=== PATIENT | female | born 1970 ===

== ENCOUNTER 2025-05-06 15:20 | Outpatient (AMB) | payer MEDICARE, MEDICAID, SELFPAY ==
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
[2025-05-06 15:29] VITALS: BP 176/107; PULSE 81; O2SAT 98; BMI 25.7
--- OUTSIDE RECORDS SUMMARY | 2025-05-06 20:24 | XMS_ITS | Encounter Summary ---
Author Organization [employer] Address [address] [place] [address] Care Team Providers Care Body Trimmer Name Role Phone Candelaria Reddy Unavailable aNrda Colon PA-C Primary Care Provider [phone] Encounter Details Date Type Department Care Team ([facility] st Contact Info) Description 01/28/2025 Telephone [facility] [address] [place] [address] Narda Colon PA-C [address] [place] [address] Social History Tobacco Use Types Packs/Day Years [...] PM EST documented as of this encounter Miscellaneous Notes * Telephone Encounter - Constantino Rahman - 01/31/2025 2:24 PM EDT Reprocessed. * Telephone Encounter - Mony Herbert - 01/28/2025 8:42 AM EDT Patient needs to be referred elsewhere because [facility] pain management is @ capacity. Please advise Call back # [phone] documented in this encounter Plan of Treatment Upcoming Encounters Date Type Department Care Team (Late st Contact Info) Description 06/03/2025 1:00 PM EST Office Visit [facility] [address] [place] [address] Fermin Peters MD [address] [place] [address] 06/05/2025 12:30 PM EST Office Visit [facility] [address] [place] [phone] John Jarquin LLD [address] [place] [address] documented as of this encounter Visit Diagnoses Not on filedocumented in this encounter Additional Health Concerns Assessment Noted Time PHQ-9 Depression Total Score: 7 09/21/19 25 2:33 PM EST documented as of this encounter Care Teams Body Trimmer Relationship Specialty Start Date End Date Narda Colon PA-C [address] [place] [address] PCP - General Family Medicine 02/06/24 Candelaria Reddy [address] [place] [address] [facility] 03/01/23 documented as of this encounter
--- OUTSIDE RECORDS SUMMARY | 2025-05-06 20:24 | XMS_ITS | Encounter Summary ---
Author Organization [employer] Address [address] [place] [address] Care Team Providers Care Client Manager Large Law Name Role Phone Candelaria Reddy Unavailable Narda Colon PA-C Primary Care Provider [phone] Encounter Details Date Type Department Care Team (Late st Contact Info) Description 08/16/2024 Telephone [facility] [address] [place] [address] Narda Colon PA-C [address] [place] [address] Social History Tobacco Use Types Packs/Day Years Used Date Smoking Tobacco: Every Day Cigarettes 0.5 35 Passive Smoke Exposure: Current Smokeless Tobacco: Never Comments:07/04/23 Alcohol Use Standard Drinks/Week Comments Yes 0 (1 standard drink = 0.6 oz pur e alcohol) occ Housing Stability Answer Date Recorded What is [...] things needed for daily living? No 06/19/2024 Utilities Answer Date Recorded In the past 12 months, has t he electric, gas, oil or water company threatened to shut off services in your home? No 06/19/2024 Internet Access Answer Date Recorded Internet Access [...] encounter Miscellaneous Notes * Telephone Encounter - Mayte Haynes - 08/19/2024 8:50 AM EST Imm's faxed and mailed as requested by pt. * Telephone Encounter - Yeny Thompson - 08/16/2024 4:18 PM EST Patient is looking to have recent labs faxed over to there endo's office dr damon . And possibly mailed to them as well documented in this encounter Plan of Treatment Upcoming Encounters Date Type Department Care Team (Late st Contact Info) Description 06/03/2025 1:00 PM EST Office Visit [facility] [address] [place] [address] Fermin Peters MD [address] [place] [address] 06/05/2025 12:30 PM EST Office Visit [facility] [address] [facility] [address] [place] [phone] John Jarquin LLD [address] [place] [address] documented as of this encounter Visit Diagnoses Not on filedocumented in this encounter Care Teams Client Manager Large Law Relationship Specialty Start Date End Date Narda Colon PA-C NPI: [id number] [place] [address] PCP - General Family Medicine 02/06/24 Candelaria Reddy [address] [place] [address] [facility] 03/01/23 documented as of this encounter
--- OUTSIDE RECORDS SUMMARY | 2025-05-06 20:24 | XMS_ITS | Encounter Summary ---
Author Organization [employer] Address [address] [place] [address] Care Team Providers Care Tug Captain Name Role Phone Sarai Bruno POOL CLEANER Unavailable [phone] Arturo Lopez POOL CLEANER Primary Care Provider Unavaila roman StringeriniCandelaria Unavailable Veronica Marie Unavailable [phone] Ishmael Savage DDS Unavailable [phone] Emma Gutierrez Unavailable Kings HenleyC Primary Care Provider [phone] Narda Colon PA-C Primary Care Provider [phone] Encounter Details Date Type Department Care Team (Late st Contact Info) Description 08/10/[address] [address] Tayla Mitchell Social History Tobacco Use Types Packs/Day Years Used Date Smoking Tobacco: Every Day Cigarettes 0.5 35 Passive Smoke Exposure: Current Smokeless Tobacco: Never Comments:07/04/23 Housing Stability Answer Date Recorded What is your housing situation today? I do not have housing (Staying with others, in a hotel, in a long term, living outside on the street, on a beach, in a car, or in a park 04/26/[address] you li ve. Do you have problems with any of the following? None of the above 04/26/2023 Food Insecurity Answer Date Recorded Within the past 12 months, y ou worried that your food would run out before you got money to buy more: Never True 05/16/2023 Within the past 12 months,th e food you bought just didn't last and you didn't have enough money to get more: Never True Transportation Answer Date Recorded In the past 12 months, has l ack of transportation kept you from medical appts, meetings, work or from getting things needed for daily living? No 05/16/2023 Utilities Answer Date Recorded In the past 12 months, has t he electric, gas, oil or water company threatened to shut off services in your home? No 05/16/2023 Comments Unknown Sex and Gender Information Value Date Recorded Sex Assigned at Female 11/07/2022 1:48 PM EDT Legal Sex Female 8:39 PM EST Gender Identity Female 05/27/2022 8:39 PM EST Sexual Orientation Straight 05/27/2022 8: 39 PM EST documented as of this encounter Plan of Treatment Upcoming Encounters Date Type Department Care Team (Late st Contact Info) Description 06/03/2025 1:00 PM EST Office Visit [address] [address] Fermin Peters MD 8 [place] [address] 06/05/2025 12:30 PM EST Office Visit [facility] [address] [place] [phone] John Jarquin LLD [address] [place] [address] documented as of this encounter Visit Diagnoses Not on filedocumented in this encounter Care Teams Tug Captain Relationship Specialty Start Date End Date Arturo Lopez FNP [address] [place] [address] PCP - General Family Medicine 02/20/23 10/12/23 Kings Henley PA-C [address] [place] [address] PCP - General Family Medicine 10/13/23 02/05/24 Narda Colon PA-C [address] [place] [address] PCP - General Family Medicine 02/06/24 Sarai Bruno FNP [address] [place] [address] Family Medicine 05/13/22 10/12/23 Candelaria Reddy [address] [place] [address] [facility] 03/01/23 [place], [place] [address] [place] [address] Community Health Worker 04/21/23 4 Ishmael Savage DDS [address] [place] [address] Dentist 06/01/23 10/12/23 Emma Gutierrez [address] [place] [address] Dental Rn Flight 06/01/23 10/12/23 documented as of this encounter
--- OUTSIDE RECORDS SUMMARY | 2025-05-06 20:24 | XMS_ITS | Encounter Summary ---
Author Organization [employer] Address [address] [place] [address] Care Team Providers Care High Pressure Firer Name Role Phone Candelaria Reddy Unavailable Narda Colon PA-C Primary Care Provider [phone] Encounter Details Date Type Department Care Team ([facility] st Contact Info) Description 01/23/[address] [facility] [address] [place] [address] Narda Colon PA-C 8 [place] [address] Social History Tobacco Use Types [...] encounter Miscellaneous Notes * Telephone Encounter - Jean Alvarado - 02/03/2025 9:53 AM EDT Duplicate task * Telephone Encounter - Mony Herbert - 01/23/2025 2:30 PM EDT Please call to answer questions on the referral Call back to alexa # [phone] documented in this encounter Plan of Treatment Upcoming Encounters Date Type Department Care Team (Late st Contact Info) Description 06/03/2025 1:00 PM EST Office Visit [facility] 8 [place] [address] Fermin Peters MD 8 [place] [address] 06/05/2025 12:30 PM EST Office Visit [facility] [address] [facility] [address] [place] [phone] John Jarquin, LLD 119 [place] [address] documented as of this encounter Visit Diagnoses Not on filedocumented in this encounter Additional Health Concerns Assessment Noted Time PHQ-9 Depression Total Score: 7 09/21/19 25 2:33 PM EST documented as of this encounter Care Teams High Pressure Firer Relationship Specialty Start Date End Date Narda Colon PA-C [address] [place] [address] PCP - General Family Medicine 02/06/24 Candelaria Reddy 102 [place] [address] [facility] 03/01/23 documented as of this encounter
--- OUTSIDE RECORDS SUMMARY | 2025-05-06 20:24 | XMS_ITS | Encounter Summary ---
Author Organization [employer] Address [address] 7[address] [place] [address] Care Team Providers Care Lieutenant Fire Fighter Name Role Phone Candelaria Reddy Unavailable Narda Colon PA-C Primary Care Provider [phone] Encounter Details Date Type Department Care Team (Late st Contact Info) Description 12/24/2024 Orders Only [facility] [address] [place] [address] Provider, Not In System Social History Tobacco Use Types Packs/Day Years [...] Description 06/03/2025 1:00 PM EST Office Visit [facility] 8 [place] [phone] Fermin Peters MD 8 [place], [place] [phone] 06/05/2025 12:30 PM EST Office Visit [facility] [address] [place] [phone] John Jarquin LLD 119 [place] [address] documented as of this encounter Procedures Procedure Name Priority Date/Time Associated Diagnosis Comments PTH, INTACT AND CALCIUM Routine 12/23/2024 10:56 AM EDT documented in this encounter Results * PTH, Intact And Calcium (12/23/2024 10:56 AM EDT) Blood Venous blood specimen / Unknown us Not In System Provider LAB BLOOD ORDERABLES Edit ed Result - Final documented in this encounter Visit Diagnoses Not on filedocumented in this encounter Additional Health Concerns Assessment Noted Time PHQ-9 Depression Total Score: 7 09/21/19 25 2:33 PM EST documented as of this encounter Care Teams Lieutenant Fire Fighter Relationship Specialty Start Date End Date Narda Colon PA-C 102 [place] [address] PCP - General Family Medicine 02/06/24 Candelaria Reddy 102 [place] [address] [facility] 03/01/23 documented as of this encounter
--- OUTSIDE RECORDS SUMMARY | 2025-05-06 20:24 | XMS_ITS | Encounter Summary ---
Author Organization [employer] Address [address] 7[address] [place] [address] Care Team Providers Care Instructor Private Name Role Phone Candelaria Reddy Unavailable Narda Colon PA-C Primary Care Provider [phone] Encounter Details Date Type Department Care Team ([facility] st Contact Info) Description 09/25/2024 [facility] [address] [place] [address] Narda Colon PA-C 8 [place] [address] Social History Tobacco Use Types Packs/Day Years Used Date Smoking Tobacco: Every Day Cigarettes 0.5 35 Passive Smoke Exposure: Current Smokeless Tobacco: Never Comments:07/04/23 Alcohol Use Standard Drinks/Week Comments Yes 0 (1 standard drink = 0.6 oz pur e alcohol) occ Depression Answer Date Recorded Patient Health Questionnaire-9 [...] Description 06/03/2025 1:00 PM EST Office Visit [facility] 8 [place] [address] Fermin Peters MD 8 [place] [address] 06/05/2025 12:30 PM EST Office Visit [facility] [address] [address] [address] [place] [phone] John Jarquin, LLD [address] [place] [address] documented as of this encounter Procedures Procedure Name Priority Date/Time Associated Diagnosis Comments HM HIV 1/2 ANTIGEN AND ANTIBODY Routine 04/10/2019 documented in this encounter Results * HM HIV 1/2 Antigen and Antibody (04/10/2019) HIV Ag/Ab Nonreactive us Historical Provider HEALTH MAINTENANCE Final Result documented in this encounter Visit Diagnoses Not on filedocumented in this encounter Additional Health Concerns Assessment Noted Time PHQ-9 Depression Total Score: 7 09/21/19 25 2:33 PM EST documented as of this encounter Care Teams Instructor Private Relationship Specialty Start Date End Date Narda Colon PA-C 102 [place] [address] PCP - General Family Medicine 02/06/24 Candelaria Reddy 102 [place] [address] [facility] 03/01/23 documented as of this encounter
--- OUTSIDE RECORDS SUMMARY | 2025-05-06 20:25 | XMS_ITS | Encounter Summary ---
Author Organization [employer] Address [address] 7[address] [place] [address] Care Team Providers Care Osteologist Name Role Phone Candelaria Reddy Unavailable Narda Colon PA-C Primary Care Provider [phone] Encounter Details Date Type Department Care Team (Late st Contact Info) Description 05/06/2025 Telephone [facility] [address] [place] [phone] Dental, Provider, DDS Social History Tobacco Use Types Packs/Day Years [...] encounter Miscellaneous Notes * Telephone Encounter - Elena Shore - 05/06/2025 8:32 AM EDT LVM to offer PT sooner exam appointment today is available with Dr Jarquin documented in this encounter Plan of Treatment Upcoming Encounters Date Type Department Care Team (Late st Contact Info) Description 06/03/2025 1:00 PM EST Office Visit [address] [address] Fermin Peters MD 8 [place] [address] 06/05/2025 12:30 PM EST Office Visit [facility] [address] [place] [address] John Jarquin LLD 119 [place] [address] documented as of this encounter Visit Diagnoses Not on filedocumented in this encounter Additional Health Concerns Assessment Noted Time PHQ-9 Depression Total Score: 7 09/21/19 25 2:33 PM EST documented as of this encounter Care Teams Osteologist Relationship Specialty Start Date End Date Narda Colon PA-C [address] [place] [address] PCP - General Family Medicine 02/06/24 Candelaria Reddy 102 [place] [address] [facility] 03/01/23 documented as of this encounter
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
--- OUTSIDE RECORDS SUMMARY | 2025-05-06 20:25 | XMS_ITS | Continuity of Care Document ---
Author Organization [facility] [facility] Address [address] [facility] [address] [place], [place] Phone [phone] Care Team Providers Care Newspaper Managing Editor Name Role Phone Narda Colon PA-C Care Team Information Receiv er Unavailable JENY KWONG M.D. Care Team Information Rec eiver Unavailable Narda Colon PA-C Primary Care Physician Unava ilable Problems Active Problems Provider Date Closed fracture distal phalanx, toe Jeny Kwong M.D. Onset: 10/28/2024 Perimenopausal disorder Jeny Kwong M.D. Onset: 10/28/2024 Essential hypertension Jeny Kwong M.D. O nset: 05/07/2019 Malaise and fatigue Jeny Kwong M.D. Onse t: 02/03/2017 Hypothyroidism Jeny Kwong M.D. Onset: 0 11/27/2014 Social History Type Date Description Comments Sex Female Sex Unknown Allergies and adverse reactions Active Allergies Criticality Reaction Severity Comments Date Nicotine Unable to assess criticality skin rash 06/08/2021 Inactive Allergies No Known Drug Allergies 0 09/18/2014 Medications Active Medications SIG Qnty Indications Order ing Provider Date Wxafycz844lka Tablets Take 1 Tablet By Mouth Every Day 90tabs Jeny Kwong M.D. 04/23/2024 Vitamin D 5000 x1/week Unknown 00/00/0 000 Diltiazem HCL ER Coated Lwhvn058jx Caps ER 24HR (tiadylt)1 tab by mouth every day(forgot 10/27/24 dose) I10 Unknown Nixafpkwp568xe Tablets qid Unknown Kxxkyltpse581pg Tablets take 1 tablet by mouth three-4 times a day Unknown Cyclobenzaprine OND22si Tablets Sarai BrunoBASILIA Escitalopram Ihgoiac05hk Tablets Neha Foss NP Nortriptyline ASS55zc Capsules Neha Foss NP Propranolol VVA49kx Tablets Take 1/2-1 Tablet By Mouth Every Day as Needed For Panic Unknown Methylphenidate DHQ15ai Tablets Take 1 Tablet By Mouth Twice A Day(Ritalin) Neha Foss NP Acetaminophen prn Unknown History Medications Clonidine HCL0.1mg Tablets Take 1 Tablet By Mouth AT Bedtime as Directed 90tabs I10 Jeny Kwong M.D. 06/08/2021 - 07/25/2022 Yjpkqnk139dtq Tablets Take 1 Tablet By Mouth Every Day Except 1 & 1/2 Tablets On Monday 100tabs Jeny Kwong M.D. 06/08/2021 - 08/19/2024 Mrxvqtg927bns Tablets Take 1 Tablet By Mouth Every Day 30tabs Jeny Kwong M.D. 09/13/2019 - 06/08/2021 Diltiazem HCL ER Wwiqc871zg Caps ER 24HR 1 tab by mouth every day 30caps I10 Jeny Kwong M.D. 05/07/2019 - 01/16/2020 Mqlzfbr844dit Tablets 1 by mouth every day 30tabs Jeny Kwong M.D. 05/07/2019 - 09/13/2019 Rtwnrzh377ybs Tablets Take 1 Tablet By Mouth Every Day 30tabs Jeny Kwong M.D. 01/29/2019 - 05/07/2019 Levothyroxine Ptkqug836iit Tablets take 1 tablet by mouth every day 30tabs Jeny Kwong M.D. 12/26/2017 - 01/29/2019 Liothyronine Wlhxiq4ysh Tablets take 1/2 tablet every morning 15tabs Jeny Kwong M.D. 03/23/2017 - 12/26/2017 Levothyroxine Fwnsda583nqr Tablets Take 1 Tablet By Mouth Every Day 30tabs Jeny Kwong M.D. 03/23/2017 - 12/26/2017 [place] Gymboeu42oq Tablets 1 by mouth every day 30tabs E03.9 Jeny Kwong M.D. 02/03/2017 - 03/23/2017 Zdzzekjsel91ze Tablets Take 1 Tablet By Mouth Every Day Unknown - 05/07/[address] (One) A Day Unknown - 05/07/2019 Levothyroxine Jfqyfp586kui Tablets 1 by mouth every day Liliya Kendrick, BASILIA - 02/03/2017 Pvgqkdtx444bt Tablets Take 1 Tablet By Mouth Twice A Day as Needed Unknown - 06/08/2021 Fluoxetine DEF09tn Tablets 1 tab by mouth every day Unknown - 05/07/2019 Uftiniopna34iz Tablets 1 by mouth every day 90tabs Mandeep Rankin, DO - 12/20/2022 Bupropion Hydrochloride ER (SR)150mg Tablets ER 12HR Mandeep Rankin, DO - 01/16/2020 Amphetamine-Dextroamp uxjxpzkp85bj Tablets Yue Foss NP - 12/20/2022 Tiadylt LA417gk Caps ER 24HR Alondra Pereira NP - 06/08/2021 Brcfrbwh47er/24HR Patches 24HR Alondra Pereira NP - 06/08/2021
--- OUTSIDE RECORDS SUMMARY | 2025-05-06 20:25 | XMS_ITS | Encounter Summary ---
Author Organization [facility] Address [address] [place] [address] 7 [place] [address] Care Team Providers Care Steward/Stewardess Economy Class Name Role Phone Ishmael Savage DDS Primary Care Provider Sarai Bruno Unavailable [phone] Sarai Bruno Unavailable Sarai Bruno Primary Care Provider Patrick Ordonez Unassjoshua Primary Care Provider U Arturo Bazzi Primary Care Provider Unavaila Candelaria Burnett Unavailable Veronica Marie Unavailable [phone] Ishmael Savage DDS Unavailable Emma Gutierrez Unavailable [place]ley PA-C Primary Care Provider Narda Colon PA-C Primary Care Provider Encounter Details Date Type Department Care Team (Late st Contact Info) Description 06/07/2022 Abstract [facility] [address] [place] [phone] Kwesi Regaladoda 102 [place], [place] [id number] Social History Tobacco Use Types Packs/Day Years Used Date Smoking Tobacco: Never Assessed Comments Unknown Sex and Gender Information Value [...] Description 06/03/2025 1:00 PM EST Office Visit [facility] 8 [place] [address] Fermin Peters MD 8 [place] [address] 06/05/2025 12:30 PM EST [facility] [address] [facility] 120 [place] [address] John Jarquin LLD 119 [place] [address] documented as of this encounter Visit Diagnoses Not on filedocumented in this encounter Care Teams Steward/Stewardess Economy Class Relationship Specialty Start Date End Date Ishmael Savage DDS 119 [place] [address] PCP - General Dentist 05/13/22 07/13/22 Sarai Bruno FNP [address] [place] [address] PCP - General Family Medicine 07/14/22 11/29/22 Patrick Ordonez Unassigned PCP - General Family Medicine 11/30/22 02/19/23 Arturo Lopez FNP PCP - General Family Medicine 02/20/23 10/12/23 Kings Henley PA-C [address] [place] [address] PCP - General Family Medicine 10/13/23 02/05/24 Narda Colon PA-C [address] [place] [address] PCP - General Family Medicine 02/06/24 Sarai Bruno FNP 102 [place] [address] Family Medicine 05/13/22 10/12/23 Sarai Bruno FNP [address] [place] [address] Family Medicine 05/13/22 02/28/23 Candelaria Reddy 102 [place] [address] [facility] 03/01/23 [place], [place] 102 [place] [address] Community Health Worker 04/21/23 4 Ishmael Savage DDS [address] [place] [address] Dentist 06/01/23 10/12/23 Emma Gutierrez [address] [place] [address] Dental Welt Cutter 06/01/23 10/12/23 documented as of this encounter
--- OUTSIDE RECORDS SUMMARY | 2025-05-06 20:25 | XMS_ITS | Encounter Summary ---
Author Organization [employer] Address [address] [facility] [address] 7[address] [place] [address] Care Team Providers Care Vending Enterprises Supervisor Name Role Phone Candelaria Reddy Unavailable Narda Colon PA-C Primary Care Provider [phone] Encounter Details Date Type Department Care Team (Late st Contact Info) Description 02/21/[address] [address] Narda Colon PA-C [address] [place] [address] Social History Tobacco Use Types Packs/Day [...] encounter Miscellaneous Notes * Telephone Encounter - Ashley Roman - 02/21/2025 3:05 PM EDT Needs an updated order for pt eval on 02/28 please fax to [phone] original order was written 11/01 documented in this encounter Plan of Treatment Upcoming Encounters Date Type Department Care Team (Late st Contact Info) Description 06/03/2025 1:00 PM EST Office Visit [facility] 8 [place] [address] Fermin Peters MD 8 [place] [address] 06/05/2025 12:30 PM EST Office Visit [facility] [address] [facility] [address] [place] [address] John Jarquin, LLD 119 [place] [address] documented as of this encounter Visit Diagnoses Not on filedocumented in this encounter Additional Health Concerns Assessment Noted Time PHQ-9 Depression Total Score: 7 09/21/19 25 2:33 PM EST documented as of this encounter Care Teams Vending Enterprises Supervisor Relationship Specialty Start Date End Date Narda Colon PA-C [address] [place] [address] PCP - General Family Medicine 02/06/24 Candelaria Reddy 102 [place] [address] [facility] 03/01/23 documented as of this encounter
--- OUTSIDE RECORDS SUMMARY | 2025-05-06 20:25 | XMS_ITS | Encounter Summary ---
Author Organization [employer] Address [address] [facility] [address] 7[address] [place] [address] Care Team Providers Care Lube Attendant Name Role Phone Candelaria Reddy Unavailable Narda Colon PA-C Primary Care Provider [phone] Encounter Details Date Type Department Care Team ([facility] st Contact Info) Description 05/01/2025 Telephone [facility] [address] [place] [address] Narda Colon PA-C 8 [place] [address] Social History Tobacco Use Types [...] encounter Miscellaneous Notes * Telephone Encounter - Juhi Rodriguez RN - 05/01/2025 3:32 PM EDT Spoke with patient, she pulled a tick off her arm on Monday, and yesterday she noticed the site hasa bulleye rash with a deep purple center at the bite site. Reports its painful, about 2 inches in diameter, and warm to the touch. No fever, malaise, or myalgias. Does not meet nurse tick bite protocol Protocol Used: Tick Bite (Adult) Protocol-Based Disposition: See in Office Today Positive Triage Questions: * Red or very tender (to touch) area and started over 24 hours after the bite * Red ring or bull's-eye rash occurs around a deer tick bite * All higher-acuity triage questions were negative Care Advice Discussed: * Reasons To Call Back - You become worse * Telephone Encounter - Mony Herbert - 05/01/2025 3:14 PM EDT Patient was bitten by a tick on 04/28 and it is now forming a bullseye, please advise patient when she can be seen Call back # [phone] documented in this encounter Plan of Treatment Upcoming Encounters Date Type Department Care Team (Late st Contact Info) Description 06/03/2025 1:00 PM EST Office Visit [facility] 8 [place] [address] Fermin Peters MD 8 [place] [address] 06/05/2025 12:30 PM EST Office Visit [facility] [address] [facility] [address] [place] [phone] John Jarquin LLD 119 [place] [address] documented as of this encounter Visit Diagnoses Not on filedocumented in this encounter Additional Health Concerns Assessment Noted Time PHQ-9 Depression Total Score: 7 09/21/19 25 2:33 PM EST documented as of this encounter Care Teams Lube Attendant Relationship Specialty Start Date End Date Narda Colon PA-C [address] [place] [address] PCP - General Family Medicine 02/06/24 Candelaria Reddy 102 [place] [address] [facility] 03/01/23 documented as of this encounter
--- OUTSIDE RECORDS SUMMARY | 2025-05-06 20:25 | XMS_ITS | Encounter Summary ---
Author Organization [employer] Address [address] [facility] [address] 7[address] [place] [address] Care Team Providers Care Tentering Machine Feeder Name Role Phone Candelaria Reddy Unavailable Narda Colon PA-C Primary Care Provider [phone] Reason for Visit * Reason Onset Date Comments Severe Headache 09/27/2024 Encounter Details Date Type Department Care Team (Late st Contact Info) Description 09/27/[address] [address] Narda Colon PA-C 8 [place] [address] Severe Headache Social History Tobacco Use Types Packs/Day Years [...] * Telephone Encounter - Ashley Roman - 09/27/2024 4:50 PM EDT Returning a missed call from [facility]ie call again [phone] * Telephone Encounter - Janet Herron LPN - 09/27/2024 3:39 PM EDT Patient calling to report a severe headache. Onset: night No changes in meds Has tried ibuprofen 600 mg; apap 500 mg; otc migraine medication. All without effect. Discussed rebound headaches from too many NSAID's and stomach upset. Advised her to use the one that is working best. She is eating and drinking plenty of water. She is going to check her bp. She is asking for stronger LOPEZ med. Offered appt for tomorrow. She states that she was just in the office. Please advise. * Telephone Encounter - Arleen Alvarado - 09/27/2024 3:12 PM EDT Symptoms: Headaches Are you in pain: Yes How long has this been happening: since Monday Location of pain: head Chronic or Acute: Acute Were you discharged from a hospital for this issue: No When: Which Hospital: Accident Related: No Workers Comp / Auto: No Insurance: Name: Address: [employer] Name: Date of Injury: Phone Number: Fax Number: Claim Number Additional Comments: Patient stated that she has taken every over the counter painkiller and nothing has helped the headache go away, patient would like to discuss having something prescribed to assist with this documented in this encounter Plan of Treatment Upcoming Encounters Date Type Department Care Team (Late st Contact Info) Description 06/03/2025 1:00 PM EST Office Visit [address] [address] Fermin Peters MD 8 [place] [address] 06/05/2025 12:30 PM EST Office Visit [facility] 119 [facility] [address] [place] [phone] John Jarquin LLD 119 [place] [address] documented as of this encounter Visit Diagnoses Not on filedocumented in this encounter Additional Health Concerns Assessment Noted Time PHQ-9 Depression Total Score: 7 09/21/19 25 2:33 PM EST documented as of this encounter Care Teams Tentering Machine Feeder Relationship Specialty Start Date End Date Narda Colon PA-C [address] [place] [address] PCP - General Family Medicine 02/06/24 Candelaria Reddy [address] [place] [address] [facility] 03/01/23 documented as of this encounter
--- OUTSIDE RECORDS SUMMARY | 2025-05-06 20:25 | XMS_ITS | Encounter Summary ---
Author Organization [employer] Address [address] [facility] [address] 7[address] [place] [address] Care Team Providers Care Field Services Analyst Name Role Phone Candelaria Reddy Unavailable Narda Colon PA-C Primary Care Provider [phone] Encounter Details Date Type Department Care Team (Late st Contact Info) Description 09/23/2024 Orders Only [facility] 119 [place] [address] Provider, Not In System Social [...] 1:00 PM EST Office Visit [facility] 8 [place] [address] Fermin Peters MD 8 [place] [address] 06/05/2025 12:30 PM EST Office Visit [facility] 119 [facility] [address] [place] [phone] John Jarquin LLD 119 [place] [address] documented as of this encounter Procedures Procedure Name Priority Date/Time Associated Diagnosis Comments HM MAMMOGRAPHY Routine 09/11/2024 8:33 AM EST documented in this encounter Results * Hm Mammography (09/11/2024 8:33 AM EST) Anatomical Region Laterality Modality Other us Not In System Provider HEALTH MAINTENANCE Edited Result - Final documented in this encounter Visit Diagnoses Not on filedocumented in this encounter Additional Health Concerns Assessment Noted Time PHQ-9 Depression Total Score: 7 09/21/19 25 2:33 PM EST documented as of this encounter Care Teams Field Services Analyst Relationship Specialty Start Date End Date Narda Colon PA-C [address] [place] [address] PCP - General Family Medicine 02/06/24 Candelaria Reddy [address] [place] [address] [facility] 03/01/23 documented as of this encounter
== END 2025-05-06 16:01 | disposition home or self-care (01) ==
PROVIDERS: PCP Student in an Organized Health Care Education/Training Program; Visit Provider Nurse Practitioner Family
DX: M25.551 Pain in right hip (principal); M54.50 Low back pain, unspecified; G89.29 Other chronic pain; M47.816 Spondylosis without myelopathy or radiculopathy, lumbar region
CPT/HCPCS: 99204

== ENCOUNTER → 2025-05-06 15:20 | Outpatient (BNVA) | payer MEDICARE, MEDICAID, SELFPAY | PROVIDERS: PCP Student in an Organized Health Care Education/Training Program; Visit Provider Nurse Practitioner Family | DX: M47.816 Spondylosis without myelopathy or radiculopathy, lumbar region (principal); M54.50 Low back pain, unspecified; M25.551 Pain in right hip; G89.29 Other chronic pain | CPT/HCPCS: 99202 ==